=== PATIENT | female | born 1970 | race Hispanic/Latino ===

== ENCOUNTER 2024-11-16 00:54 | Emergency (ER) | payer BC, OTHER ==
[~2024-11-16] VITALS: Ht 162.6 cm; Wt 88.0 kg
[2024-11-16 00:55] VITALS: TEMP 98
--- NOTE | 2024-11-16 01:12 | EKG ---
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
--- NOTE | 2024-11-16 01:14 | ERN ---
ED Note History of Present Illness Stated Complaint: HTN, LEFT ARM STIFFNESS Chief Complaint: Hypertension Time Seen by MD: 00:59 Dictation: This Is a 54-year-old obese female who presented to the emergency room with complaints of left arm stiffness and blood pressure being high. Apparently she felt uneasy and checked her blood pressure at home which was 180/110. She came into the ER for further evaluation. She took her losartan as usual. No history of any chest pain, diaphoresis palpitations. Patient stated that she was checking her 's blood pressure and then she started checking her own blood pressure multiple times. Consistently her blood pressure was high and her left arm was getting stiff so she came in. No blurred vision neck pain facial asymmetry weakness Temperature 98 pulse 83 respirations 16 blood pressure 176/90 with a pulse oximetry of 98% on room air Her chronic medical problems include diabetes mellitus, hypertension, hypercholesterolemia. Allergies: Coded Allergies: No Known Allergies (Unverified Allergy, Unknown, 11/16/24) Past Medical History Past Medical History: Diabetes-Type II, High Cholesterol, Hypertension Surgical History: Family History: Negative History: Not Applicable RN Note Reviewed/Agreed w/PFSH: Yes Review of System Dictation Constitutional: Negative for fever,chills, and weight loss Eyes: Negative for injury, pain,redness, and discharge ENT: Negative for injury,pain or swelling Cardiovascular: Negative for chest pain, palpitations, and edema positive for hypertension Respiratory: Negative for shortness of breath, cough, and wheezing, Abdomen/GI: Negative for abdominal pain, nausea, vomiting, diarrhea, and constipation Back: Negative for injury and pain : Negative for injury, bleeding and discharge MS/Extremity: Negative for injury and deformity Skin: Negative for rash, and discoloration Neuro: Negative for headache, weakness, numbness, tingling, and seizure Psych: Negative for suicide ideation, homicidal ideation, and hallucinations Initial Vital Sign VS Vital Signs Date Time Temp Pulse Resp B/P (MAP) Pulse Ox O2 Delivery O2 Flow Rate FiO2 11/16/24 00:55 98.1 83 16 176/90 98 Room Air 11/16/24 01:46 0 21 Physical Exam Dictation General: awake, alert, NAD obese female Head/Face: Normocephalic, atraumatic Eyes: PERRL, EOMI, vision at baseline ENT: oral cavity clear, TMs clear, no signs of infection Neck: Trachea midline, supple, no nuchal rigidity Cardiovascular: RRR, normal S1/S2, No MRGs, no JVD Respiratory: CTAB, no respiratory distress, No rales or wheezes Abdomen: Soft, non-tender, non-distended, normal bowel sounds, no guarding or rebound. Skin: Warm, dry, normal turgor, no rash MS/Extremity: Pulses equal, no cyanosis, neurovascular intact, FROM Neuro: COAx4, GCS 15, strength 5/5, CN 2-12 intact, normal cerebellar exam, normal gait, Psych: Normal behavior, mood, and affect normal Extremities-trace edema without any palpable cords, Homans sign is negative Results (Laboratory/Radiology) Laboratory/Radiology Laboratory Tests Test 11/16/24 01:23 White Blood Count 9.9 K/uL (4.8-10.8) Red Blood Count 3.68 MIL/uL (4.00-5.50) L Hemoglobin 10.9 g/dL (12.0-16.0) L Hematocrit 32.2 % (36-48) L Mean Corpuscular Volume 87.5 fL (79-99) Mean Corpuscular Hemoglobin 29.6 pg (27.0-33.0) Mean Corpuscular Hemoglobin Concent 33.9 g/dL (32.0-36.0) Red Cell Distribution Width 13.1 % (11.0-15.5) Platelet Count 263 K/uL (130-400) Mean Platelet Volume 11.2 fL (7.5-10.5) H Immature Granulocyte % (Auto) 0.4 % (0-1) Neutrophils (%) (Auto) 52.9 % (40.0-77.0) Lymphocytes (%) (Auto) 38.1 % (21.0-51.0) Monocytes (%) (Auto) 5.8 % (3.0-13.0) Eosinophils (%) (Auto) 2.3 % (0.0-8.0) Basophils (%) (Auto) 0.5 % (0.0-5.0) Neutrophils # (Auto) 5.2 K/uL (1.8-7.7) Lymphocytes # (Auto) 3.8 K/uL (1.0-4.8) Monocytes # (Auto) 0.6 K/uL (0.1-1.0) Eosinophils # (Auto) 0.23 K/uL (0.00-0.70) Basophils # (Auto) 0.05 K/uL (0.00-0.20) Absolute Immature Granulocyte (auto 0.04 K/uL (0-1) Nucleated Red Blood Cells 0.0 % (0.0-0.19) Sodium Level 140 mmol/L (136-145) Potassium Level 3.5 mmol/L (3.5-5.1) Chloride Level 106 mmol/L (101-111) Carbon Dioxide Level 24 mmol/L (21-32) Blood Urea Nitrogen 20 mg/dL (7-18) H Creatinine 0.8 mg/dL (0.5-1.0) Glomerular Filtration Rate Calc 87 mL/min (>90) Random Glucose 127 mg/dL (70-105) H Total Calcium 8.8 mg/dL (8.5-10.1) Total Creatine Kinase 59 U/L (21-232) Troponin I High Sensitivity 4 ng/L (4-50) Labs Reviewed?: Yes EKG Comment: Twelve lead EKG done on 11/16/2024 at 1:06 a.m. showed a heart rate of 83, NH interval 199, QRS 95, QT/QTC 405/476. Impression normal sinus rhythm with left atrial enlargement overall low voltage with poor progression of the R-waves slightly prolonged QT interval. EKG rhythm strip showed normal sinus rhythm low voltage no acute STT wave changes. Interpreted by ER MD Dr. Bella ED Course ED Course Orders Procedure Category Date Status Time Vital Signs Per CPOE 11/16/24 Transmitted Routine 01:04 Chest 1vw RAD 11/16/24 Resulted 01:04 12 Lead Ekg Tracing- EKG 11/16/24 Complete Technical 01:04 Oxygen By Nc/Pulse Ox CPOE 11/16/24 Transmitted 01:04 Maintain Iv CPOE 11/16/24 Transmitted 01:04 Iv Insertion CPOE 11/16/24 Transmitted 01:04 Cardiac Monitoring CPOE 11/16/24 Transmitted 01:04 Pulse Oximetry With CPOE 11/16/24 Transmitted Vs And Prn 01:04 Cbc With Differential LAB 11/16/24 Complete 01:04 Activity: Br W/Brp CPOE 11/16/24 Transmitted With Assist 01:04 Creatine Kinase, Total LAB 11/16/24 Complete 01:04 Troponin I High LAB 11/16/24 Complete Sensitivity 01:04 Urinalysis Profile LAB 11/16/24 In Process 01:04 Basic Metabolic Panel LAB 11/16/24 Complete 01:04 Ketorolac PHA 11/16/24 Complete Tromethamine 30mg/Ml 02:30 Current Medications Medications (Trade) Dose Ordered Sig/Ирина Route PRN Reason Start Time Stop Time Status Last Admin Dose Admin Ketorolac Tromethamine (toRADol) 30 mg ONCE ONCE IVP 11/16/24 02:30 11/16/24 02:31 DC Vital Signs Date Time Temp Pulse Resp B/P (MAP) Pulse Ox O2 Delivery O2 Flow Rate FiO2 11/16/24 02:25 78 18 176/86 99 Room Air* 0 21 11/16/24 01:46 74 18 180/80 98 Room Air* 0 21 11/16/24 00:55 98.1 83 16 176/90 98 Room Air We will perform diagnostic labs, advanced imaging and administer medications according to the patient's complaint. Once the results are available, will review and personally interpreted the labs to rule out any acute life- threatening emergency the trach require immediate intervention and treatment. I will then re-evaluate the patient after treatment and diagnostic exams have return to determine whether the patient requires any further testing, can safely be discharged home or need further admission to hospital for additional treatment and evaluation. 1:43 a.m. labs reviewed CBC showed a hemoglobin of 10.9. BNP 7 is relatively normal except for a BUN of 20 Chest x-ray is unremarkable for any acute infiltrate. I had a long discussion with the patient and spouse that perhaps the left arm stiffness could be from checking her blood pressure multiple times in the same arm. Far as the blood pressure fluctuations these are not uncommon and have diurnal variation. Her BMI is extremely high and I strongly suspect untreated undiagnosed sleep disorder which may cause increased sympathetic activity even at night. A component of anxiety might have added to the problem also. I recommended outpatient sleep study discussion with her primary care physician Medical Decision Making MDM Differential diagnosis: Uncontrolled hypertension, hypertensive urgency, hypertensive emergency Rationale: Tests considered and ordered secondary to shared decision making include: Previous outside records reviewed: Old ER visits. Risk of complication and/or morbidity or mortality of patient management: None Medications-Per medication reconciliation Need for hospitalization: Patient does not meet criteria for hospitalization. Need for emergency major/minor surgery: No There are no social concerns with this patient. Prescription drug management Prescriptions will include symptomatic care Patient's prior external medical records from other ER visits were reviewed by me as indicated. Prior testing and results from previous visits were reviewed. Prior tests were taken into account with medical decision making and resource utilization, independent historian/historians were used to obtain complete medical history. I independently interpreted the test that were performed, results were reviewed by me and considered findings on radiology if ordered. Medical management and examination interpretation discussions were had by me wi th other qualified healthcare professionals as indicated for the patient's care. Problem List Problem List: (1) Left arm pain (2) Uncontrolled hypertension DX & DISP Disposition: Discharge Departure Impression: Primary Impression: Uncontrolled hypertension Additional Impression: Left arm pain Condition: Stable Additional Instructions: Patient and the caregiver have been informed of all the diagnostic tests and the imaging conducted during the today's visit to the emergency room and has verbalized understanding of the results I have personally reviewed and interpreted all diagnostic exams performed here in the ER today as well as the vital signs documented by the nursing staff. The patient is now being discharged to home and should follow up with the primary care physician or the specialist as directed by the ER staff. Follow-up with primary care provider in 1 to 2 days. Take medications as directed here in the emergency room. Okay to continue home medications unless otherwise discussed during your visit in the emergency room today. Return to your nearest emergency room if symptoms worsen or if there is no improvement. Call 911 if you need immediate assistance. Take Tylenol or Motrin [id number] as needed and if no contraindications are present. Increase oral hydration. A wound culture or urine culture was ordered here in the emergency room department please follow-up with primary care provider and advise them to get repeat ports from our facility. If you had any Eduard wrap/splints that were applied here, please do not remove them until you see your primary care or specialty. Referrals: ISABELA DIAZ MD (PCP) WOOD BELLA MD Nov 16, 2024 01:14
[2024-11-16 01:29] LABS: IMMATURE GRANULOCYTE ABSOLUTE 0.04 K/uL (0-1); NUCLEATED RED BLOOD CELLS 0.0 % (0.0-0.19); PLATELET COUNT (AUTO) 263 K/uL (130-400); RED BLOOD CELL COUNT(AUTO) 3.68 MIL/uL (4.00-5.50); RED CELL DISTRIBUTION WIDTH 13.1 % (11.0-15.5); WHITE BLOOD COUNT (AUTO) 9.9 K/uL (4.8-10.8)
[2024-11-16 01:36] LABS: CREATININE 0.8 mg/dL (0.5-1.0); GLOMERULAR FILTR. RATE CALC 87.0 mL/min (>90); GLUCOSE,RANDOM 127.0 mg/dL (70-105); SODIUM SERUM 140.0 mmol/L (136-145); UREA NITROGEN, BLOOD 20.0 mg/dL (7-18)
[2024-11-16 01:41] LABS: CREATINE KINASE, TOTAL 59.0 U/L (21-232)
[2024-11-16 02:25] VITALS: BP 176/86; PULSE 78; RESP 18; O2SAT 99
--- NOTE | 2024-11-16 02:36 | HMCIMG ---
EXAM: CR Chest, 1 view CLINICAL HISTORY: Chest pain. COMPARISON: Chest radiograph dated 07/13/2010. FINDINGS: The lungs show no infiltrates or other acute findings. No pleural effusion or pneumothorax. The cardiomediastinal silhouette is within normal limits. No acute osseous abnormality. IMPRESSION: No acute cardiopulmonary process is evident. Compared to the prior study, there is no significant interval change. /[place]
[2024-11-16 02:40] LABS: APPEARANCE,URINE CLEAR (CLEAR); GLUCOSE, URINE (UA) NEGATIVE (NEGATIVE); LEUKOCYTE ESTERASE ,URINE TRACE Leu/uL (NEGATIVE); NITRATE,URINE NEGATIVE (NEGATIVE); OCCULT BLOOD,URINE NEGATIVE (NEGATIVE)
[2024-11-16 02:41] LABS: ADD UA MICROSCOPIC YES
[2024-11-16 02:44] LABS: SQUAMOUS EPITHELIAL CELL,UR RARE /HPF (0-2)
== END 2024-11-16 02:58 | disposition home or self-care (01) ==
LOC: EDH 00:54
DX: I10 Essential (primary) hypertension (principal); M79.602 Pain in left arm; E11.9 Type 2 diabetes mellitus without complications; E78.00 Pure hypercholesterolemia, unspecified
CPT/HCPCS: 99284; 96374; 71045; 82550; 84484; 80048; 85025; 81001; 36415; 93005; J1885